=== PATIENT | male | born 1960 | race Caucasian/White ===

== ENCOUNTER → 2022-06-29 | Day surgery (SDC) | payer BC ==
[~2022-06-29] MED LIST: FENTANYL CITRATE/PF 100MCG/2 ML INJ ONE; HYOSCYAMINE SULFATE 0.5 MG/ML INJ ONE; LIDOCAINE HCL 2% LOCAL INJ 5 ML SDV VIAL INJ ONE; MIDAZOLAM HCL 2 MG/2 ML VIAL ONE; MIRALAX17 GM PO; PROPOFOL IV EMULSION 10 MG/ML 20 ML VIAL ONE; PROPOFOL IV EMULSION 50 ML IV ONE
[2022-06-29 09:15] VITALS: BP 113/68
== END | disposition home or self-care (01) ==
LOC: OR 07:16
PROVIDERS: ATTEND Internal Medicine Gastroenterology
DX: Z12.11 Encounter for screening for malignant neoplasm of colon (principal); D12.4 Benign neoplasm of descending colon; D12.5 Benign neoplasm of sigmoid colon; K63.89 Other specified diseases of intestine; K58.9 Irritable bowel syndrome, unspecified; K64.8 Other hemorrhoids; Z01.810 Encounter for preprocedural cardiovascular examination
CPT/HCPCS: 45380; 93005; J1980; J2001; J2250; J2704 ×2; J3010; 45378; 45385